=== PATIENT | male | born 1990 | race Two or more races ===

== ENCOUNTER 2022-03-23 19:51 | Emergency (ER) | payer SELFPAY ==
[~2022-03-23] VITALS: Ht 180.3 cm; Wt 69.9 kg
--- NOTE | 2022-03-23 20:20 | NUR ---
TO ER BED 3. BIBFAMILY C/O ABD PAIN AND N/V SINCE NOON. PT IS ALERT AND ORIENTED. RR EVEN AND NONLABORED. CONNECTED TO MONITOR. EMESIS BAG PROVIDED. AWAITING MD BISHOP
--- NOTE | 2022-03-23 20:56 | NUR ---
URINE SAMPLE COLLECTED
[2022-03-23] MEDS ORDERED: ONDANSETRON HCL/PF 4 MG/2 ML VIAL ONE (20:57)
[2022-03-23] MEDS ORDERED: KETOROLAC TROMETHAMINE 15 MG/ML VIAL ONE (20:57)
[2022-03-23] MEDS ORDERED: KETOROLAC TROMETHAMINE INJ 30 MG/ML VIAL IV ONE (21:00)
[2022-03-23] MEDS ORDERED: ONDANSETRON HCL/PF 4 MG/2 ML VIAL IV ONE (21:00)
[2022-03-23] MEDS ORDERED: IV NS 0.9% 1,000 ML IV ONE (21:00)
--- NOTE | 2022-03-23 21:08 | NUR ---
IV LINE ESTABLISHED, [id number]
--- NOTE | 2022-03-23 21:20 | NUR ---
INFLUENZA SWAB COLLECTED
[2022-03-23 21:28] LABS: BILIRUBIN,URINE NEGATIVE (NEGATIVE); COLOR,URINE YELLOW (YELLOW); LEUKOCYTE ESTERASE ,URINE NEGATIVE (NEGATIVE); NITRITE, URINE NEGATIVE (NEGATIVE); PROTEIN,URINE NEGATIVE (NEGATIVE); UGLUCOSE NEGATIVE (NEGATIVE); UROBILINOGEN,URINE 0.2 EU/dL (0.2)
[2022-03-23] MEDS ORDERED: ONDA4TAB5 PO (22:47)
--- NOTE | 2022-03-23 23:23 | NUR ---
Patient discharged to home in stable condition. Written and verbal after care instructions given. Patient verbalizes understanding of instruction. IV removed. Catheter intact and site benign. Pressure and 4x4 applied to site. No bleeding noted. pt ambulatory with a steady gait
[2022-03-23 23:29] VITALS: BP 121/58
== END 2022-03-23 23:29 | disposition home or self-care (01) ==
LOC: ER 19:56
DX: K52.9 Noninfective gastroenteritis and colitis, unspecified (principal)
CPT/HCPCS: 99284; 96374; 96361; 96375; 87804; 81003; J2405; J7030; J1885